=== PATIENT | female | born 1985 | race Caucasian/White ===

== ENCOUNTER 2017-07-19 14:42 | Emergency (ER) | payer MEDICAID, OTHER ==
[~2017-07-19] VITALS: Ht 167.6 cm; Wt 64.0 kg
[2017-07-19 19:12] VITALS: BP 106/58
== END 2017-07-19 19:13 | disposition home or self-care (01) ==
LOC: ER 15:04
DX: S00.83XA Contusion of other part of head, initial encounter (principal); M25.511 Pain in right shoulder; W18.31XA Fall on same level due to stepping on an object, initial encounter; Y93.E1 Activity, personal bathing and showering; Y99.8 Other external cause status; Y92.89 Other specified places as the place of occurrence of the external cause
CPT/HCPCS: 99283